=== PATIENT | male | born 1950 | race Caucasian/White ===

== ENCOUNTER 2016-11-28 12:40 | Outpatient (CLI) | payer MEDICARE | END 2016-11-28 12:41 | disposition home or self-care (01) | DX: C61 Malignant neoplasm of prostate (principal) ==

== ENCOUNTER 2016-12-12 12:35 | Outpatient (CLI) | payer MEDICARE | END 2016-12-12 12:36 | disposition home or self-care (01) | DX: N39.0 Urinary tract infection, site not specified (principal) ==

== ENCOUNTER 2017-05-30 11:46 | Outpatient (CLI) | payer MEDICARE | END 2017-05-30 11:47 | disposition critical access hospital (66) | LOC: EMS 11:46 | PROVIDERS: ATTEND Surgery | DX: R53.1 Weakness (principal) | CPT/HCPCS: A0425; A0429 ==

== ENCOUNTER 2017-05-30 12:20 | Emergency (ER) | payer MEDICARE ==
[2017-05-30] MEDS ORDERED: SODIUM CHLORIDE 0.9% 1,000 ML IV ONE ×2 (13:27→16:45)
[2017-05-30] MEDS ORDERED: methylPREDNISolone SUCCINATE 125 MG/2 ML VIAL IVP STA (13:27)
[2017-05-30] MEDS ORDERED: HYDROmorphone 1 MG/ML SYRINGE IVP STA ×3 (13:27→19:50)
[2017-05-30] MEDS ORDERED: ONDANSETRON 4 MG/2 ML VIAL IVP STA (13:28)
[2017-05-30] MEDS ORDERED: HYDROmorphone 1 MG/ML SYRINGE ONE ×3 (14:24→19:54)
[2017-05-30] MEDS ORDERED: ONDANSETRON 4 MG/2 ML VIAL ONE (14:24)
[2017-05-30] MEDS ORDERED: methylPREDNISolone SUCCINATE 125 MG/2 ML VIAL IVP ONE ×2 (14:24→14:27)
--- NOTE | 2017-05-30 14:32 | CT Preliminary Report ---
Exam: CT Lumbar Spine W/O IMPRESSION: 1. Pathologic fracture T12 with moderate central spinal canal stenosis. 2. Moderate wedging pathologic fracture L1 with moderate to marked central spinal canal stenosis. 3. Pathologic fractures left iliac crest and right sacral alar. 4. Moderate right and marked left hydronephrosis. 5. Extensive mesenteric and retroperitoneal adenopathy. 6. Small right pleural effusion. RADIA The above critical findings were discussed with by Dr. Shantal Calles at 14:30 hrs o n 05/30/17. SITE ID: [id number]
[2017-05-30 14:35] LABS: BASOPHILS # (AUTO) 0.1 10^3/uL (0.0-0.1); BASOPHILS % (AUTO) 0.6 %; EOSINOPHILS # (AUTO) 0.2 10^3/uL (0.0-0.7); EOSINOPHILS % (AUTO) 1.6 %; HCT - HEMATOCRIT 38.2 % (42.0-52.0); HGB - HEMOGLOBIN 12.5 g/dL (14.0-18.0); LYMPHOCYTES # (AUTO) 1.4 10^3/uL (1.5-3.5); LYMPHOCYTES % (AUTO) 11.3 %; MEAN CORPUSCULAR HGB CONC 32.8 g/dL (32.0-36.0); MEAN CORPUSCULAR VOLUME 85.5 fL (80.0-94.0); MONOCYTES % (AUTO) 8.1 %; NEUTROPHILS # (AUTO) 9.7 10^3/uL (1.5-6.6); NEUTROPHILS % (AUTO) 78.4 %; RED BLOOD COUNT 4.47 10^6/uL (4.70-6.10); RED CELL DISTRIBUTION WIDTH 14.4 % (12.0-15.0); UNCORRECTED WHITE BLOOD COUNT 12.4 x10^3/uL; WHITE BLOOD COUNT 12.4 x10^3/uL (4.8-10.8)
[2017-05-30 14:42] LABS: CREATININE 0.8 mg/dL (0.6-1.2); INR 1.2 (0.8-1.2); POTASSIUM 3.9 mmol/L (3.5-5.0); PT - PROTHROMBIN TIME 13.9 secs (9.9-12.6)
--- NOTE | 2017-05-30 15:05 | CT Report ---
EXAM: CT LUMBAR SPINE WITHOUT CONTRAST EXAM DATE: 05/30/2017 02:10 PM. CLINICAL HISTORY: Metastatic prostate CA. Unable to move legs for 5 days. COMPARISONS: None. TECHNIQUE: Thin-section axial images were acquired of the lumbar spine from T12 to S1 without contras t. Post-processing: Coronal and sagittal reformats. Other: None. In accordance with CT protocol optimization, one or more of the following dose reduction techniques w ere utilized for this exam: automated exposure control, adjustment of mA and/or KV based on patient s ize, or use of iterative reconstructive technique. FINDINGS: Alignment: Normal. No scoliosis or spondylolisthesis. Bones: Five [id number] lumbar vertebral bodies are present. Numerous lytic lesions throughout the entirety of the normal caliber T12 vertebral body, acute nondis placed fracture extending through the superior half of this vertebral body. 5 mm anterior epidural so ft tissue density at this level causing moderate central spinal canal stenosis. The right pedicle is also involved with tumor. Acute pathologic fracture of L1 with 60% loss of height anteriorly, 30% loss of height posteriorly wi th 1 cm posterior displacement of the destroyed bone and soft tissue density such that there is moder ate to marked central spinal canal stenosis at this level. Hairline fracture also through the right p edicle. Numerous destructive lesions throughout the visualized bony pelvis. Pathologic fracture superior medial aspect left iliac crest. Comminuted mildly impacted pathologic fracture right S2-S5 alar. Disk Levels/Facets: Moderate degenerative disk disease T11-T12. Lumbar intravertebral disks of normal caliber. Mild central spinal canal stenosis L1-L2 to L5-S1 due to degenerative changes. Musculature: Normal. No fatty atrophy. Other: Moderate right and marked left hydronephrosis. Obstipation. Extensive mesenteric and retroperitoneal adenopathy. Small right pleural effusion. IMPRESSION: 1. Pathologic fracture T12 with moderate central spinal canal stenosis. 2. Moderate wedging pathologic fracture L1 with moderate to marked central spinal canal stenosis. 3. Pathologic fractures left iliac crest and right sacral alar. 4. Moderate right and marked left hydronephrosis. 5. Extensive mesenteric and retroperitoneal adenopathy. 6. Small right pleural effusion. RADIA The above critical findings were discussed with Dr. Jean-Baptiste by Dr. Shantal Calles at 14:30 hrs on 05/30/17. Referring Provider Line: [phone] SITE ID: [id number]
--- NOTE | 2017-05-30 16:09 | ED Physician Documentation ---
PD HPI SEIZURE - Stated complaint Stated Complaint: Weak Legs - Chief complaint Chief Complaint: Neuro - Additional information Additional information: Patient is a pleasant 67-year-old man with a history of, hypertension, diabetes , and stage IV prostate cancer. He is currently on Zometa and bicalutamide. This patient has a chronic indwelling Sena catheter. He is here with a complaint of bilateral lower extremity weakness. He thinks the left is a little bit weaker than the right. The patient complains of subacute weakness in the lower extremities. He says a month ago is able to walk completely normally and has had some gradual decline in his functional ability over the past several weeks however over the several days he has been unable to walk at all. In fact he can barely move his legs. He did have a mild fall about a week ago however he did notice any increase in back pain. In regards to back pain he does have some pain in the thoracolumbar area and the right side approximately the T8-T9 level. He says his sensation is normal in lower extremities and he has not noticed any other neurologic complaints involving the head, arms or torso. Review of systems: For pertinent positive and negatives in the review of systems please see the history of present illness, otherwise all other systems have been reviewed and are negative. Dragon disclaimer: Parts of this medical record were created using voice recognition technology. Because of the inherent limitations of this system, occasional same sounding word substitutions do occur and persist despite proofreading. Please read the document for context. Review of Systems Ten Systems: 10 systems reviewed and negative Neurologic: reports: Focal weakness. denies: Difficulty speaking, Near syncope , Syncope, Seizure, Confused, Altered mental status, Unresponsive, Headache, Head injury, LOC, Reviewed and negative PD PAST MEDICAL HISTORY - Past Medical History Past Medical History: Yes Cardiovascular: Hypertension, Peripheral Vascular Disease Respiratory: None Neuro: Peripheral neuropathy Endocrine/Autoimmune: Type 2 diabetes : Benign prostate hypertrophy Psych: None Musculoskeletal: Other Derm: None - Past Surgical History Past Surgical History: Yes Ortho: Other - Present Medications Home Medications: Ambulatory Orders Medication Instructions Recorded Confirmed Ibuprofen 2 tab PO BID PRN 05/30/17 05/30/17 Oxycodone HCl/Acetaminophen 1 tab PO DAILY PRN 05/30/17 05/30/17 [Oxycodone-Acetaminophen 5-325] metFORMIN [Glucophage] 1.5 tab PO DAILY 05/30/17 05/30/17 - Allergies Allergies/Adverse Reactions: Allergies Allergy/AdvReac Type Severity Reaction Status Date / Time No Known Drug Allergies Allergy Verified 05/30/17 12:28 - Social History Does the pt smoke?: No Smoking Status: Never smoker Does the pt drink ETOH?: Yes Does the pt have substance abuse?: No - Immunizations Immunizations are current?: Yes - POLST Patient has POLST: Yes PD ED PE NORMAL - Vitals Vital signs reviewed: Yes - General General: Alert and oriented X 3, No acute distress, Other (Thin pale complected male sitting on the bed in no apparent distress he is alert and oriented does not look overtly toxic or ill) - HEENT HEENT: Atraumatic, PERRL - Neck Neck: Supple, no meningeal sign - Cardiac Cardiac: RRR, No murmur - Respiratory Respiratory: No respiratory distress - Abdomen Abdomen: Normal bowel sounds - Back Back: No CVA TTP, Other (Mild pain without tenderness in approximately the T8 area just to the right of midline) - Derm Derm: Normal color, Warm and dry - Extremities Extremities: No tenderness to palpate, Normal ROM s pain, No edema - Neuro Neuro: Alert and oriented X 3, head orthopedic team physician 2-12 intact, No sensory deficit, Other (This patient is nearly completely paralyzed on examination of the bilateral lower extremities. He is barely able to move the left leg at all there is just a flicker of movement on plantar dorsiflexion of the left foot. There is virtually no movement of flexion about the hip or knee. The right lower extremity still has minimal movement on dorsiflexion less on plantar flexion. Reflexes are not present anywhere in the lower extremities) - Psych Psych: Normal mood, Normal affect Results - Vitals Vitals: Vital Signs - 24 hr 05/30/17 05/30/17 05/30/17 12:22 15:37 17:18 Temperature 37.1 C Heart Rate 108 H 104 H 99 Respiratory 16 15 18 Rate Blood Pressure 138/76 H 149/83 H 148/84 H O2 Saturation 98 96 98 Oxygen O2 Source Room air - Labs Labs: Laboratory Tests 05/30/17 05/30/17 05/30/17 14:30 14:30 14:30 WBC 12.4 H RBC 4.47 L Hgb 12.5 L Hct 38.2 L MCV 85.5 MCH 28.0 MCHC 32.8 RDW 14.4 Plt Count 343 MPV 7.0 L Neut # 9.7 H Lymph # 1.4 L [place] # 1.0 Eos # 0.2 Baso # 0.1 Absolute Nucleated RBC 0.00 Nucleated RBCs 0.0 PT 13.9 H INR 1.2 Sodium 135 Potassium 3.9 Chloride 98 L Carbon Dioxide 26 Anion Gap 11.0 BUN 14 Creatinine 0.8 Estimated GFR (MDRD) 96 Glucose 430 H Calcium 9.0 PD MEDICAL DECISION MAKING - ED course Complexity details: reviewed old records, reviewed results, re-evaluated patient , considered differential, d/w patient, d/w family, d/w economics consultant ED course: Very nice but unfortunate 67-year-old male with subacute weakness and near complete paralysis of both lower extremities over the past week. He has had difficulties over the last month that have been slowly getting worse and persistent however there is a large pattern changer and repairer the last week. On my examination he is almost completely paralyzed with almost no movement in either leg. Sensation is intact reflexes are not present. The patient was taken to CT scan and a CT scan of lumbar spine was done. The CT scan shows pathologic fracture of T12 with moderate central spinal canal stenosis there is a wedging passion the logic fracture of L1 with moderate to marked central spinal canal stenosis. There is also other evidence of bony involvement in the iliac crest and sacral corona there is also bilateral hydronephrosis and significant mesenteric and retroperitoneal adenopathy. The patient was given IV fluids pain , nausea medications and IV Solu-Medrol. The case was discussed with her hospitalist service at [facility]. The patient's urologist Dr. Jones is a physician At [facility] who knows the patient very well. Disposition transfer to [facility] Clinical impression: 1. Subacute paraplegia from pathologic fracture of L1 and T12 with canal stenosis secondary to prostate cancer Departure - Departure Disposition: 02 Transfer Acute Care Hosp
[2017-05-30] MEDS ORDERED: INSULIN REGULAR HUMAN 100 UNIT/1 ML 10 ML MDV IVP STA (16:45)
[2017-05-30] MEDS ORDERED: INSULIN REGULAR HUMAN 100 UNIT/1 ML 10 ML MDV ONE ×3 (17:02→19:20)
[2017-05-30] MEDS ORDERED: INSULIN REGULAR HUMAN 100 UNIT/1 ML 10 ML MDV SUBQ STA (19:05)
[2017-05-30 19:24] VITALS: BP 140/79
[2017-05-30] MEDS ORDERED: SODIUM CHLORIDE FLUSH 0.9% 10 ML SYRINGE IVP ONE (19:55)
== END 2017-05-30 20:12 | disposition short-term general hospital (02) ==
LOC: EDUNIT# → ED 12:20
DX: G82.20 Paraplegia, unspecified (principal); M48.55XA Collapsed vertebra, not elsewhere classified, thoracolumbar region, initial encounter for fracture; M48.56XA Collapsed vertebra, not elsewhere classified, lumbar region, initial encounter for fracture; M48.00 Spinal stenosis, site unspecified; C61 Malignant neoplasm of prostate; S32.392A Other fracture of left ilium, initial encounter for closed fracture; N13.30 Unspecified hydronephrosis; J90 Pleural effusion, not elsewhere classified; I44.4 Left anterior fascicular block; R94.31 Abnormal electrocardiogram [ECG] [EKG]; I10 Essential (primary) hypertension; E11.42 Type 2 diabetes mellitus with diabetic polyneuropathy; Z79.84 Long term (current) use of oral hypoglycemic drugs; N40.0 Benign prostatic hyperplasia without lower urinary tract symptoms; I73.9 Peripheral vascular disease, unspecified
CPT/HCPCS: 36415; 72131; 80048; 85025; 85610; 93005; 96361; 96372; 96374; 96375; 96376; 99284; 99285; J1170; J1815

== ENCOUNTER 2017-05-30 20:00 | Outpatient (CLI) | payer MEDICARE | END 2017-05-30 20:01 | disposition short-term general hospital (02) | LOC: EMS 20:00 | PROVIDERS: ATTEND Surgery | DX: G82.20 Paraplegia, unspecified (principal) | CPT/HCPCS: A0425; A0426 ==